=== PATIENT | female | born 1930 | race Caucasian/White ===

== ENCOUNTER 2020-01-02 15:43 | Emergency (ER) | payer MEDICARE ==
--- NOTE | 2020-01-02 17:19 | RAD ---
Right knee 4 views: 01/02/2020 COMPARISON: None HISTORY: Fall, trauma, pain FINDINGS: There is chondrocalcinosis of the medial and the lateral compartment. No knee joint effusio n, displaced fracture, or evidence of dislocation. IMPRESSION: No acute fracture or evidence of dislocation.
--- NOTE | 2020-01-02 18:18 | CT ---
CT OF THE BRAIN WITHOUT CONTRAST: 01/02/20 COMPARISON: None. HISTORY: Fall from standing at [employer] with head trauma. TECHNIQUE: Multiple contiguous axial images were obtained in a CT of the brain without contrast. FINDINGS: Cerebral atrophy is seen. 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 There is no evidence of hydrocephalous, intracranial hemorrhage, or extra-axial fluid collection. Soft tissue swelling is seen in the right forehead. The calvarium is unremarkable. The visualized pa ranasal sinuses and mastoid air cells are well aerated. IMPRESSION: No evidence of acute intracranial abnormality. POS: [facility]
--- NOTE | 2020-01-02 18:20 | CT ---
CT CERVICAL SPINE WITHOUT CONTRAST: 01/02/20 COMPARISON: None. HISTORY: Fall with head trauma, neck pain. TECHNIQUE: Multiple contiguous axial images were obtained in a CT of the cervical spine without contrast. Sagitt al and coronal reformats were performed. FINDINGS: There is severe degenerative changes throughout the cervical spine with intervertebral disc space rosa rowing and osteophyte formation. There is no evidence of acute fracture or subluxation. No prevertebr al soft tissue swelling is seen. The posterior facets are well aligned. Normal alignment of the skull base with the cervical spine is seen. IMPRESSION: Degenerative changes of the cervical spine without acute osseous abnormality. POS: [facility]
[2020-01-02] MEDS ORDERED: Amlodipine 5 MG TAB ONE (18:41)
== END 2020-01-02 18:49 | disposition home or self-care (01) ==
LOC: ERS 15:43
DX: S09.90XA Unspecified injury of head, initial encounter (principal); S80.01XA Contusion of right knee, initial encounter; F03.90 Unspecified dementia, unspecified severity, without behavioral disturbance, psychotic disturbance, mood disturbance, and anxiety; I10 Essential (primary) hypertension; W18.30XA Fall on same level, unspecified, initial encounter; Y93.41 Activity, dancing; Y92.129 Unspecified place in nursing home as the place of occurrence of the external cause
CPT/HCPCS: 70450; 72125; 93005